=== PATIENT | female | born 1975 | race Caucasian/White ===

== ENCOUNTER 2022-03-01 15:38 | Emergency (ER) | payer MEDICAID, SELFPAY ==
--- NOTE | 2022-03-01 15:38 | ECG_ITS ---
APPROVED REPORT Exam: Resting ECG HR:99 bpm ECG Measurements Heart Rate 99 AXES WA 152 P 67 QRSd 88 QRS 40 QT 337 T 72 QTc 393 Conclusion SINUS RHYTHM MINIMAL ST DEPRESSION [0.025+ mV ST DEPRESSION] BORDERLINE ECG UNCONFIRMED REPORT Electronically signed by : Moshe Moreira MD 03/01/2022 19:57:03
[2022-03-01 15:43] VITALS: BP 135/110; PULSE 82; RESP 20; TEMP 36.8; O2SAT 100; BMI 20.7
[2022-03-01 16:00] VITALS: BP 102/77
--- NOTE | 2022-03-01 16:07 | PC.NURSE ---
DR. BENNETT AT BEDSIDE
[2022-03-01 16:18] LABS: Basophils # 0.1 K/mm3 (0-0.2); Eosinophils # 0.4 K/mm3 (0.0-0.4); Eosinophils % 4.2 % (0.1-12.0); Hematocrit 42.4 % (37.0-47.0); Hemoglobin 13.6 g/dL (12.2-16.2); Lymphocytes # 1.9 K/mm3 (0.7-4.5); Lymphocytes % 22.6 % (10-50); Mean Corpuscular HGB Conc 32.1 g/dL (31.8-35.4); Mean Corpuscular Hemoglobin 28.6 pg (27.0-31.2); Mean Corpuscular Volume 89.1 fl (81-99); Mean Platelet Volume 7.3 fl (7.4-10.4); Monocytes # 0.5 K/mm3 (0.1-1.0); Neutrophils # 5.7 K/mm3 (1.8-7.8); Neutrophils % 66.2 % (37.0-80.0); Platelet Count 342 K/mm3 (142-424); Red Blood Count 4.76 M/mm3 (4.20-5.40); Red Cell Distribution Width 13.1 % (11.5-17.5); White Blood Count 8.5 K/mm3 (4.8-10.8)
[2022-03-01 16:20] LABS: Chloride 104 mmol/L (98-107)
[2022-03-01 16:21] LABS: Potassium 3.5 mmoL/L (3.5-5.1); Sodium 136 mmol/L (136-145)
[2022-03-01 16:23] LABS: Alanine Aminotransferase 15 U/L (12-78); Aspartate Amino Transferase 23 U/L (14-36); Blood Urea Nitrogen 13 mg/dl (7-17); Estimated Glomerular Filt Rate 90 ml/min (>60); GFR (African American) 109 ML/MIN (>60); Lipase 72 U/L (23-300)
[2022-03-01 16:24] LABS: Albumin Level 4.2 g/dl (3.5-5.0); Albumin/Globulin Ratio 1.5 (1.1-1.8); Alkaline Phosphatase 91 U/L (38-126); Anion Gap 6.5 mEq/L (5-15); Calcium 9.2 mg/dl (8.4-10.2); Carbon Dioxide 29 mmol/L (22.0-30.0); Globulin 2.8 g/dL (1.3-3.2); Glucose 94 mg/dl (74-100)
[2022-03-01 16:26] LABS: Coronavirus 19, PCR Not Detected (NotDetected); Influenza A, PCR Not Detected (NotDetected); Influenza B, PCR Not Detected (NotDetected)
[2022-03-01 16:26] LABS: Microscopic, Urine URINE MICROSCOPIC (MICROSCOPIC)
[2022-03-01 16:30] VITALS: BP 107/74; PULSE 79; O2SAT 98
[2022-03-01 16:38] LABS: Bilirubin,Total 0.1 mg/dl (0.2-1.3)
[2022-03-01 16:44] LABS: Appearance,Urine CLEAR (Clear); Bilirubin,Urine Negative (Negative); Blood, Urine Negative (Negative); Color,Urine STRAW (Yellow); Glucose,Urine (UA) Negative (Negative); Ketones,Urine Negative (Negative); Leukocyte Esterase,Urine Negative (Negative); Nitrate,Urine Negative (Negative); PH,Urine 7.5 (5.0-8.5); Protein,Urine Negative (Negative); Specific Gravity, Urine 1.015 (1.005-1.030); Urobilinogen,Urine 0.2 EU/dl (0.2)
[2022-03-01 17:00] VITALS: BP 103/76; PULSE 94; O2SAT 97
--- NOTE | 2022-03-01 17:12 | PC.NURSE ---
ER at to update patient on POC
--- NOTE | 2022-03-01 17:32 | HMH.EDGENADL ---
Discharge Plan Disposition Patient Disposition: Home, Self-Care Condition: Good Prescriptions Prescriptions: New ondansetron 4 mg tablet,disintegrating 4 mg PO DAILY Qty: 30 0RF Referrals Follow up/Referrals: Silvano Tomas [Primary Care Provider] - See instructions Activity Restrictions/Add. Instructions Additional Instructions/Restrictions: Please follow-up with your primary care physician within the next 1 to 2 days. Please drink plenty of water and take Tylenol for pain control. Please be careful with NSAIDs given concern for possible gastritis/peptic ulcer disease. Please return to the emergency department if symptoms worsen. You have also been prescribed Zofran please take as prescribed. Clinical Impressions Clinical Impression: Atypical chest pain Print Language Print Language: Greenlandic Discharge ED Provider: Leti Null General Adult HPI General Chief complaint: Chest Pain Stated complaint: CP Time Seen by Provider: 03/01/22 15:40 Mode of Arrival: Ambulatory Source of Information: Patient Limitations: No Limitations Description of Symptoms (Recalled from ER Triage Doc. by RN): PT REPORTS CHEST PAIN X 2 DAYS THAT RADIATES TO BACK, NAUSEA X 3 DAYS. PAIN IN CENTER OF CHEST IS SHARP, PAIN WITH INSPIRATION, PAIN UNDER LEFT BREAST. REPORTS HEADACHE AND TINGLING TO LEFT PINKY AND RING FINGER History of Present Illness HPI narrative: Mrs. Ventura is a 46-year-old female presenting to the emergency department for chest pain for 2 days which radiates into her back. She also reports nausea for 3 days. Patient describes the chest pain as sharp and located underneath her left breast. Also reports headache and tingling of her fingers. Patient does report a history of anxiety but reports this feels different than her usual anxiety attacks. Denies any fevers or other infectious-like symptoms. Normal bowel movements. No abdominal pain. No lower extremity swelling or pain. No history of blood clots. complaint: Chest pain Related Data Previous Rx's Medication Instructions Recorded ondansetron 4 mg disintegrating 4 mg PO DAILY #30 tabs 03/01/22 tablet Allergies Allergy/AdvReac Type Severity Reaction Status Date / Time No Known Allergies Allergy Verified 03/01/22 17:17 [facility] Disclaimer: The information contained in this section may have been updated after the patient was seen, as this information can be updated by other users. Social History Smoking Status: Never smoker alcohol intake: never current occupational status: employed Travel in the last 8 weeks: None ROS Obtained: Yes All systems reviewed & no additional complaints except as documented Physical Exam General General appearance: alert and in no apparent distress Head Head exam: atraumatic and normocephalic Eye Eye exam: Present normal appearance and EOMI ENT ENT exam: Present normal exam and normal oropharynx Neck Neck exam: Present normal inspection and full ROM Chest Chest inspection: Present normal inspection and symmetric chest wall rise Respiratory Respiratory exam: Present normal lung sounds bilaterally Cardiovascular Cardiovascular exam: Present regular rate and normal heart sounds Abdominal Exam Abdominal exam: Present soft and normal bowel sounds Extremities Exam Extremities exam: Present normal inspection and full ROM Back Exam Back exam: Present normal inspection and full ROM Neurological Exam Neurological exam: Present alert and oriented X3 Skin Skin exam: Present warm and normal color Medical Decision Making Medical Records Medical records reviewed: Yes I reviewed the patient's medical records. Kt Inquiry Pt receiving controlled substance: No Vital Signs: 03/01/22 15:43 03/01/22 16:00 03/01/22 16:30 Temperature 98.3 F Temperature Source Oral Pulse Rate 79 Pulse Rate [Apical] 82 Respiratory Rate 20 Blood Pressure 1
[2022-03-01 17:36] LABS: Squamous Epithelial Cell,Urine Occasional #/hpf (0-5)
[2022-03-01 17:40] VITALS: BP 103/76; PULSE 88; RESP 17; TEMP 37; O2SAT 100
== END 2022-03-01 17:40 | disposition home or self-care (01) ==
PROVIDERS: Emergency Provider Student in an Organized Health Care Education/Training Program; PCP Pediatrics
DX: R07.89 Other chest pain (principal)
CPT/HCPCS: 80053; 81001; 83690; 85025; 93005; 96365; 96375; 99284; C9803; J2405; U0003; U0005

== ENCOUNTER 2022-10-06 21:56 | Emergency (ER) | payer MEDICAID, SELFPAY ==
--- NOTE | 2022-10-06 21:56 | ECG_ITS ---
APPROVED REPORT Exam: Resting ECG HR:79 bpm ECG Measurements Heart Rate 79 AXES MA 157 P 79 QRSd 84 QRS 85 QT 338 T 72 QTc 373 Conclusion SINUS RHYTHM WITH SINUS ARRHYTHMIA NORMAL ECG UNCONFIRMED REPORT Electronically signed by : Moshe oMreira MD 10/07/2022 21:35:23
[2022-10-06 21:57] VITALS: BP 121/81; PULSE 79; RESP 20; TEMP 36.8; O2SAT 100; BMI 22.6
--- NOTE | 2022-10-06 22:18 | XR_ITS ---
PROCEDURE INFORMATION: Exam: XR Chest Exam date and time: 10/06/2022 10:22 PM Age: 47 years old Clinical indication: Other: Palpitations; Additional info: Palpitation TECHNIQUE: Imaging protocol: Radiologic exam of the chest. Views: 1 view. COMPARISON: No relevant prior studies available. FINDINGS: Lungs: Unremarkable. No consolidation. Pleural spaces: Unremarkable. No pleural effusion. No pneumothorax. Heart/Mediastinum: Unremarkable. No cardiomegaly. Bones/joints: Unremarkable. IMPRESSION: No acute findings.
[2022-10-06 22:29] LABS: Basophils % 0.3 % (0.1-2.0); Eosinophils # 0.3 K/mm3 (0.0-0.4); Eosinophils % 2.6 % (0.1-12.0); Hematocrit 42.3 % (37.0-47.0); Hemoglobin 13.5 g/dL (12.2-16.2); Lymphocytes % 16.1 % (10-50); Mean Corpuscular Hemoglobin 28.7 pg (27.0-31.2); Mean Corpuscular Volume 89.7 fl (81-99); Mean Platelet Volume 7.4 fl (7.4-10.4); Monocytes # 0.7 K/mm3 (0.1-1.0); Neutrophils # 9.1 K/mm3 (1.8-7.8); Neutrophils % 74.9 % (37.0-80.0); Platelet Count 284 K/mm3 (142-424); Red Blood Count 4.72 M/mm3 (4.20-5.40); Red Cell Distribution Width 13.2 % (11.5-17.5); White Blood Count 12.2 K/mm3 (4.8-10.8)
[2022-10-06 22:30] LABS: Chloride 105 mmol/L (98-107); Potassium 3.6 mmoL/L (3.5-5.1); Sodium 140 mmol/L (136-145)
[2022-10-07 00:36] VITALS: BP 115/74; PULSE 71; RESP 16; TEMP 36.8; O2SAT 100
[2022-10-07 01:29] LABS: Alanine Aminotransferase 21 U/L (12-78); Anion Gap 14.6 mEq/L (5-15); Aspartate Amino Transferase 35 U/L (14-36); Bilirubin,Total 0.3 mg/dl (0.2-1.3); Blood Urea Nitrogen 12 mg/dl (7-17); Carbon Dioxide 24 mmol/L (22.0-30.0); Creatinine Clearance Estimated 100 mL/min (50-200); Estimated Glomerular Filt Rate 107 ml/min (>60); GFR (African American) 130 ML/MIN (>60); Glucose 96 mg/dl (74-100); Total Protein,Serum 7.4 g/dl (6.3-8.2); Troponin I < 0.01 ng/ml (0.00-0.034)
[2022-10-07 01:30] LABS: Albumin Level 4.3 g/dl (3.5-5.0); Albumin/Globulin Ratio 1.4 (1.1-1.8); Alkaline Phosphatase 90 U/L (38-126); Globulin 3.1 g/dL (1.3-3.2)
== END 2022-10-06 23:32 | disposition home or self-care (01) ==
PROVIDERS: Emergency Provider Emergency Medicine; PCP Pediatrics
DX: Z53.21 Procedure and treatment not carried out due to patient leaving prior to being seen by health care provider (principal)
CPT/HCPCS: 71045; 80053; 84484; 85025; 93005; 99211

== ENCOUNTER 2022-12-22 17:14 | Emergency (ER) | payer MEDICAID, SELFPAY ==
--- NOTE | 2022-12-22 17:24 | PC.NURSE ---
Dr. Sandoval at BS for pt eval
[2022-12-22 17:25] VITALS: BP 127/84; PULSE 84; RESP 20; TEMP 36.8; O2SAT 100; BMI 20.9
--- NOTE | 2022-12-22 17:30 | CT_ITS ---
PROCEDURE INFORMATION: Exam: CT Abdomen And Pelvis With Contrast Exam date and time: 12/22/2022 6:40 PM Age: 47 years old Clinical indication: Abdominal pain; Additional info: HX liver tumor/severe anxiety/tachypnea TECHNIQUE: Imaging protocol: Computed tomography of the abdomen and pelvis with contrast. Radiation optimization: All CT scans at this facility use at least one of these dose optimization techniques: automated exposure control; mA and/or kV adjustment per patient size (includes targeted exams where dose is matched to clinical indication); or iterative reconstruction. Contrast material: ISOVUE; Contrast volume: 70 ml; Contrast route: IV; REPORTING DATA: Count of CT and Cardiac NM exams in prior 12 months: This patient has received 0 known CTs and 0 known cardiac nuclear medicine studies in the 12 months prior to the current study. COMPARISON: None FINDINGS: Liver: 3.4 x 3 cm well-defined hypodense mass anteriorly in the right lobe of the liver. Findings compatible with a hepatic cyst. Gallbladder and bile ducts: Gallbladder partially collapsed. Pancreas: Pancreas unremarkable Spleen: The spleen is unremarkable. Adrenal glands: Adrenal glands unremarkable. Kidneys and ureters: No hydronephrosis. Stomach and bowel: Moderate stool burden the. Colonic diverticulosis. No evidence of diverticulitis. Appendix: Appendix unremarkable Intraperitoneal space: Unremarkable. No free air. No significant fluid collection. Vasculature: Unremarkable. No abdominal aortic aneurysm. Lymph nodes: Unremarkable. No enlarged lymph nodes. Urinary bladder: Unremarkable as visualized. Reproductive: 2 cm left adnexal cyst. Bones/joints: Unremarkable. No acute fracture. Approximate 3 mm central disc bulge at L4-L5. Findings incompletely visualized. Soft tissues: Unremarkable. IMPRESSION: 1. 3.4 x 3 cm well-defined hypodense mass anteriorly in the right lobe of the liver. Findings compatible with a hepatic cyst. 2. No evidence of acute abnormality.
--- NOTE | 2022-12-22 17:30 | CT_ITS ---
PROCEDURE INFORMATION: Exam: CTA Chest Without And With Contrast Exam date and time: 12/22/2022 6:40 PM Age: 47 years old Clinical indication: Shortness of breath; Additional info: Liver tumor/soa/severe anxiety TECHNIQUE: Imaging protocol: Computed tomographic angiography of the chest without and with contrast. Exam focused on the arteries. 3D rendering (Not supervised by radiologist): MIP and/or 3D reconstructed images were created by the technologist. Radiation optimization: All CT scans at this facility use at least one of these dose optimization techniques: automated exposure control; mA and/or kV adjustment per patient size (includes targeted exams where dose is matched to clinical indication); or iterative reconstruction. Contrast material: ISOVUE 370; Contrast volume: 70 ml; Contrast route: INTRAVENOUS (IV); REPORTING DATA: Count of CT and Cardiac NM exams in prior 12 months: This patient has received 0 known CTs and 0 known cardiac nuclear medicine studies in the 12 months prior to the current study. COMPARISON: CR XR CHEST PORTABLE 10/06/2022 10:22 PM FINDINGS: Pulmonary arteries: There is suboptimal opacification of pulmonary arteries due to contrast bolus timing. Aorta: Unremarkable. No aortic aneurysm. No aortic dissection. Lungs: Calcified granuloma left lung base. Pleural spaces: Unremarkable. No pneumothorax. No pleural effusion. Heart: Unremarkable. No cardiomegaly. No pericardial effusion. Coronary arteries: No evidence of coronary artery calcification Lymph nodes: Unremarkable. No enlarged lymph nodes. Bones/joints: Unremarkable. No acute fracture. Soft tissues: Solitary dense calcification retro areolar region right breast in Other findings: Please see CT abdomen report for discussion of the abdomen. IMPRESSION: No large or central pulmonary embolus. Evaluation of the peripheral pulmonary arteries is limited.
--- NOTE | 2022-12-22 17:31 | HMH.EDGENADL ---
Discharge Plan Disposition Patient Disposition: Home, Self-Care Chief Complaint: Anxiety Prescriptions Prescriptions: No Action dextroamphetamine-amphetamine 10 mg tablet 20 mg PO DAILY Patient Comments: TAKE 1 TABLET BY MOUTH DAILY. Trintellix 10 mg tablet 20 mg PO DAILY Patient Comments: TAKE 1 TABLET BY MOUTH DAILY ondansetron 4 mg tablet,disintegrating 4 mg PO DAILY Referrals Follow up/Referrals: Silvano Tomas [Primary Care Provider] - See instructions Activity Restrictions/Add. Instructions Additional Instructions/Restrictions: At this time it was felt you are safe to be discharged home. If new or worsening symptoms please do not hesitate to return the emergency department. If symptoms persist please follow-up with your family doctor as you are able. Clinical Impressions Clinical Impression: Panic attack Discharge ED Provider: Cecilio Sandoval General Adult HPI General Chief complaint: Anxiety Stated complaint: panic attacks Time Seen by Provider: 12/22/22 17:25 History of Present Illness HPI narrative: Patient is a 47-year-old female with past medical history of ADHD, bipolar disorder, severe anxiety who presents emergency department for evaluation of what she suspects is an anxiety attack. Onset was acute, 2:30 PM. Feelings of impending doom, muscle cramps, severe shortness of breath and anxiety. 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 Patient no longer has her menstrual period. No other acute complaints at this time. Related Data Home Medications Medication Instructions Recorded Confirmed dextroamphetamine-amphetamine 10 20 mg PO DAILY ADHD 10/06/22 10/06/22 mg tablet ondansetron 4 mg disintegrating 4 mg PO DAILY Nausea 10/06/22 10/06/22 tablet vortioxetine 10 mg tablet 20 mg PO DAILY anxiety 10/06/22 10/06/22 (Trintellix) Allergies Allergy/AdvReac Type Severity Reaction Status Date / Time No Known Allergies Allergy Verified 03/01/22 17:17 [facility] Disclaimer: The information contained in this section may have been updated after the patient was seen, as this information can be updated by other users. Social History (Updated 03/02/22 @ 13:58 by Leti Null MD) Smoking Status: Never smoker alcohol intake: never current occupational status: employed Travel in the last 8 weeks: None ROS Obtained: Yes Systems reviewed as appropriate & no additional complaints except as documented Physical Exam General General appearance: alert and in distress Head Head exam: atraumatic and normocephalic Eye Eye exam: Present PERRL and EOMI ENT ENT exam: Present mucous membranes moist Neck Neck exam: Present normal inspection Chest Chest inspection: Present normal inspection and symmetric chest wall rise Respiratory Respiratory exam: Present normal lung sounds bilaterally, respiratory distress and other (Tachypnea) Cardiovascular Cardiovascular exam: Present regular rate and normal rhythm Abdominal Exam Abdominal exam: Present soft; Absent tenderness Extremities Exam Extremities exam: Present normal inspection Neurological Exam Neurological exam: Present alert Psychiatric Psychiatric exam: Present anxious Skin Skin exam: Present warm and dry Medical Decision Making Kt Inquiry Pt receiving controlled substance: No Vital Signs: 12/22/22 18:00 12/22/22 17:25 12/22/22 18:50 Temperature 98.3 F Temperature Source Oral Pulse Rate 71 66 Pulse Rate [Left Radial] 84 Respiratory Rate 20 Blood Pressure 112/74 123/72 Blood Pressure [Right Arm] 127/84 Blood Pressure Mean 89 Blood Pressure Mean [Right Arm] 98 02 Sat by Pulse Oximetry 99 100 99 Oxygen Delivery Method Room Air Lab Data Lab Results 12/22/22 18:22: WBC 7.6, RBC 4.53, Hgb 13.1, Hct 40.9, MCV 90.5, MCH
[2022-12-22 18:00] VITALS: BP 112/74; PULSE 71; O2SAT 99
--- NOTE | 2022-12-22 18:03 | ECG_ITS ---
APPROVED REPORT Exam: Resting ECG HR:65 bpm ECG Measurements Heart Rate 65 AXES AZ 142 P 68 QRSd 87 QRS 55 QT 369 T 69 QTc 380 Conclusion SINUS RHYTHM LOW QRS VOLTAGE IN PRECORDIAL LEADS [QRS DEFLECTION < 1.0 mV IN CHEST LEADS] BORDERLINE ECG UNCONFIRMED REPORT Electronically signed by : Moshe Moreira MD 12/23/2022 17:18:55
[2022-12-22 18:31] VITALS: BMI 20.9
[2022-12-22 18:37] LABS: Chloride 106 mmol/L (98-107); Sodium 142 mmol/L (136-145)
[2022-12-22 18:38] LABS: Potassium 3.8 mmoL/L (3.5-5.1)
[2022-12-22 18:40] LABS: Alanine Aminotransferase 18 U/L (12-78); Albumin/Globulin Ratio 1.3 (1.1-1.8); Alkaline Phosphatase 86 U/L (38-126); Anion Gap 10.8 mEq/L (5-15); Aspartate Amino Transferase 24 U/L (14-36); Basophils % 0.6 % (0.1-2.0); Bilirubin,Total 0.2 mg/dl (0.2-1.3); Blood Urea Nitrogen 11 mg/dl (7-17); Carbon Dioxide 29 mmol/L (22.0-30.0); Creatinine Clearance Estimated 73 mL/min (50-200); Eosinophils # 0.3 K/mm3 (0.0-0.4); Eosinophils % 3.3 % (0.1-12.0); Estimated Glomerular Filt Rate 77 ml/min (>60); GFR (African American) 93 ML/MIN (>60); Hematocrit 40.9 % (37.0-47.0); Hemoglobin 13.1 g/dL (12.2-16.2); Lymphocytes # 1.9 K/mm3 (0.7-4.5); Lymphocytes % 24.7 % (10-50); Mean Corpuscular HGB Conc 31.9 g/dL (31.8-35.4); Mean Corpuscular Hemoglobin 28.9 pg (27.0-31.2); Mean Corpuscular Volume 90.5 fl (81-99); Mean Platelet Volume 7.7 fl (7.4-10.4); Monocytes # 0.5 K/mm3 (0.1-1.0); Monocytes % 6.1 % (1.7-9.3); Neutrophils % 65.3 % (37.0-80.0); Platelet Count 325 K/mm3 (142-424); Red Blood Count 4.53 M/mm3 (4.20-5.40); Red Cell Distribution Width 13.1 % (11.5-17.5); White Blood Count 7.6 K/mm3 (4.8-10.8)
[2022-12-22 18:41] LABS: Calcium 8.8 mg/dl (8.4-10.2); Glucose 110 mg/dl (74-100)
[2022-12-22 18:50] VITALS: BP 123/72; PULSE 66; O2SAT 99
[2022-12-22 18:54] LABS: Troponin I < 0.01 ng/ml (0.00-0.034)
--- NOTE | 2022-12-22 19:20 | PC.NURSE ---
hand off report given to rn shift mgr staff
[2022-12-22 20:35] VITALS: BP 121/75; PULSE 64; RESP 16; TEMP 36.8; O2SAT 99
== END 2022-12-22 20:36 | disposition home or self-care (01) ==
PROVIDERS: Emergency Provider Emergency Medicine; PCP Pediatrics
DX: F41.0 Panic disorder [episodic paroxysmal anxiety] (principal); R06.02 Shortness of breath; F31.9 Bipolar disorder, unspecified; F90.9 Attention-deficit hyperactivity disorder, unspecified type
CPT/HCPCS: 71275; 74177; 80053; 84484; 85025; 93005; 96374; 99285; Q9967

== ENCOUNTER 2024-07-22 17:50 | Emergency (ER) | payer MEDICAID, SELFPAY ==
[2024-07-22 17:58] VITALS: BP 143/89; PULSE 78; RESP 18; TEMP 36.9; O2SAT 100; BMI 25.1
--- NOTE | 2024-07-22 18:06 | ECG_ITS ---
APPROVED REPORT Exam: Resting ECG HR:70 bpm ECG Measurements Heart Rate 70 AXES AR 159 P 63 QRSd 94 QRS 63 QT 367 T 59 QTc 388 Conclusion SINUS RHYTHM WITH SINUS ARRHYTHMIA NORMAL ECG Electronically signed by : OTTO GALDAMEZ, 07/22/2024 23:11:47
--- NOTE | 2024-07-22 18:28 | HMH.EDGENADL ---
Discharge Plan Disposition Patient Disposition: Home, Self-Care Condition: Good Prescriptions Prescriptions: No Action dextroamphetamine-amphetamine 10 mg tablet 20 mg PO DAILY Patient Comments: TAKE 1 TABLET BY MOUTH DAILY. Trintellix 10 mg tablet 20 mg PO DAILY Patient Comments: TAKE 1 TABLET BY MOUTH DAILY ondansetron 4 mg tablet,disintegrating 4 mg PO DAILY Referrals Follow up/Referrals: Silvano Tomas [Primary Care Provider] - See instructions Activity Restrictions/Add. Instructions Additional Instructions/Restrictions: As we discussed, it appears your headache was likely due to, in part, the recent initiation of your Wellbutrin. Given that you are feeling better, you are stable for discharge at this time. Please return with any new or worsening symptoms. Clinical Impressions Clinical Impression: Headache Instructions Patient Instructions: DI for Migraine, DI for Headache Print Language Print Language: Uzbek Discharge ED Provider: Tani Arguelles Adult HPI General Chief complaint: Headache Stated complaint: ZUNIGA,tightness in chest Time Seen by Provider: 07/22/24 18:28 Mode of Arrival: Ambulatory Source of Information: Patient Description of Symptoms (Recalled from ER Triage Doc. by RN): Pt presents with c/o headache x 2 days that came on suddenly. Pt states she has tried taking tylenol but has not had relief. Pt has nausea and is senstive to light. Pt is also concerned about the tightness in her chest. Pt states she has a hx of anxiety and has been having medication changes. Pt states she has a tightness in her chest that won't go away. Pt is tearful in triage. History of Present Illness HPI narrative: Patient presents with 2 days of headache with associated anxiety. Symptoms were not maximal at onset. She denies history of migraines however reports recent initiation of bupropion after discontinuation of Adderall for history of ADHD. She was also recently started on SSRI within the past month. She describes associated decreased p.o. intake. No diplopia however does describe some mild photophobia. She describes associated chest tightness that is intermittent and has been identical to symptoms attributable to anxiety in the past. She has not suffering from chest pain or tightness at this time. Denies any palpitations. No previous therapies. Please note that above description of symptoms, in this electronic medical record under categorization of recalled from ER triage doctor by RN are reflective of an initial nursing assessment, however, is not reflective of my full history and physical exam that was personally taken and clarified. Consequentially, this preceding description of symptoms, which may include the patient's categorized chief complaint in the EMR, do not reflect my personal clinical impression, and the ultimate description of history of present illness and patient stated complaints should be deferred to this section of the note. Unless stated otherwise or congruent with this section of the note, additional signs, symptoms, or incongruence should be interpreted as inaccurate with my clinical impression. Related Data Home Medications ?Medication ?Instructions ?Recorded ?Confirmed dextroamphetamine-amphetamine 10 20 mg PO DAILY ADHD 10/06/22 10/06/22 mg tablet ondansetron 4 mg disintegrating 4 mg PO DAILY Nausea 10/06/22 10/06/22 tablet vortioxetine 10 mg tablet 20 mg PO DAILY anxiety 10/06/22 10/06/22 (Trintellix) Allergies Allergy/AdvReac Type Severity Reaction Status Date / Time No Known Allergies Allergy Verified 03/01/22 17:17 [facility] Disclaimer: The information contained in this section may have been updated after the patient was seen, as this information can be updated by other users. Social History (Updated 03/02/22 @ 13:58 by Leti Null MD) Smoking Status: Never smoker alcohol intake: never current occupational status: employed Travel in the last 8 weeks?: None Have you lived/traveled outside [place] in past 30 days?: No Contact w/someone who lives/traveled outside [place] past 30 days?: No Exposure to someone with infectious disease in past 14 days?: No Do you have a fever (greater than 100.4 F or 38 C)?: No Have you tested positive for COVID-19?: No Exposed to someone with COVID-19 in past 14 days?: No Do you have a sore throat?: No Do you have a cough?: No Do you have any weakness?: No Do you have any diarrhea?: No Are you experiencing any unusual bleeding?: No Do you have any muscle aches/pain?: No Do you have any abdominal pain?: No Are you experiencing loss of taste or smell?: No ROS Obtained: Yes other As per HPI Physical Exam General General appearance: alert and in no apparent distress Head Head exam: atraumatic and normocephalic Eye Eye exam: Present normal appearance Neck Neck exam: Present normal inspection Chest Chest inspection: Present normal inspection and symmetric chest wall rise Respiratory Respiratory exam: Present normal lung sounds bilaterally; Absent respiratory distress Cardiovascular Cardiovascular exam: Present regular rate and normal rhythm Abdominal Exam Abdominal exam: Present soft Neurological Exam Neurological exam: Present alert and oriented X3 Psychiatric Psychiatric exam: Present normal affect and normal mood Skin Skin exam: Present warm and dry Medical Decision Making Medical Records Medical records reviewed: Yes I reviewed the patient's medical records. Screening: Per USPSTF and CDC recommendations, given the prevalence of disease in our region, it is our hospital?s policy to screen for HIV and viral Hepatitis for all patients aged 18 and over and those with ongoing risk factors. Kt Inquiry Pt receiving controlled substance: No Vital Signs: 07/22/24 17:58 07/22/24 18:30 07/22/24 19:37 Temperature 98.4 F 97.9 F Temperature Source Oral Oral Pulse Rate 67 90 Pulse Rate [Right] 78 Respiratory Rate 18 18 20 Blood Pressure 120/68 112/69 Blood Pressure [Right Arm] 143/89 H Blood Pressure Mean [Right Arm] 107 Blood Pressure Source [Right Arm] Automatic Cuff Blood Pressure Position [Right Arm] Sitting 02 Sat by Pulse Oximetry 100 94 L Oxygen Delivery Method Room Air Room Air Room Air Orders (Tests/Meds): ED MEDICATIONS Discontinued Medications Generic Name Dose Route Start Last Admin Trade Name Freq PRN Reason Stop Dose Admin Diphenhydramine HCl 25 mg 07/22/24 18:38 07/22/24 18:48 Diphenhydramine 50mg/Ml Vial IV 07/22/24 18:39 25 mg ONCE ONE Administration Sodium Chloride 1,000 mls @ 999 mls/hr 07/22/24 18:38 07/22/24 18:49 Sod Chlor 0.9% 1000ml Bag IV 07/22/24 19:38 999 mls/hr .Q1H1M ONE Administration Magnesium Sulfate 2 gm in 50 mls @ 50 mls/hr 07/22/24 18:38 07/22/24 18:48 Magnesium Sulfate 2gm/50ml Premix IV 07/22/24 19:37 50 mls/hr ONCE ONE Administration Ketorolac Tromethamine 15 mg 07/22/24 18:38 07/22/24 18:48 Ketorolac 30mg/Ml Vial IV 07/22/24 18:39 15 mg ONCE ONE Administration Prochlorperazine Edisylate 10 mg 07/22/24 18:38 07/22/24 18:49 Prochlorperazine 10mg/2ml Vial IV 07/22/24 18:39 10 mg ONCE ONE Administration Medical Decision Narrative: Patient with history and exam per above presenting for evaluation of headache in the setting of recent medication adjustment Diagnoses considered include medication side effect, migraine, no clinical evidence to warrant further testing for intracranial hemorrhage, venous sinus thrombus, or other acute surgical pathology, nor stroke ED workup and treatment included: ED MEDICATIONS Discontinued Medications Generic Name Dose Route Start Last Admin Trade Name Freq PRN Reason Stop Dose Admin Diphenhydramine HCl 25 mg 07/22/24 18:38 07/22/24 18:48 Diphenhydramine 50mg/Ml Vial IV 07/22/24 18:39 25 mg ONCE ONE Administration Sodium Chloride 1,000 mls @ 999 mls/hr 07/22/24 18:38 07/22/24 18:49 Sod Chlor 0.9% 1000ml Bag IV 07/22/24 19:38 999 mls/hr .Q1H1M ONE Administration Magnesium Sulfate 2 gm in 50 mls @ 50 mls/hr 07/22/24 18:38 07/22/24 18:48 Magnesium Sulfate 2gm/50ml Premix IV 07/22/24 19:37 50 mls/hr ONCE ONE Administration Ketorolac Tromethamine 15 mg 07/22/24 18:38 07/22/24 18:48 Ketorolac 30mg/Ml Vial IV 07/22/24 18:39 15 mg ONCE ONE Administration Prochlorperazine Edisylate 10 mg 07/22/24 18:38 07/22/24 18:49 Prochlorperazine 10mg/2ml Vial IV 07/22/24 18:39 10 mg ONCE ONE Administration Patient had improvement of symptoms upon repeat evaluation. I discussed my clinical impression with patient and answered all questions. At this time, the evidence for any other entities in the differential is insufficient to warrant any further testing or ED observation. This was explained to the patient. The patient was advised that persistent or worsening symptoms require further evaluation. Critical Care Critical Care Time Critical Care Time: No
[2024-07-22 18:30] VITALS: BP 120/68; PULSE 67; RESP 18; O2SAT 94
[2024-07-22] MEDS: MAGNESIUM SULFATE IN WATER 2 GM/50 ML PIGGYBACK IV (18:48)
[2024-07-22] MEDS: KETOROLAC 30MG/ML VIAL 15 MG IV (18:48)
[2024-07-22] MEDS: diphenhydrAMINE 50MG/ML VIAL 25 MG IV (18:48)
[2024-07-22] MEDS: PROCHLORPERAZINE 10MG/2ML VIAL 10 MG IV (18:49)
[2024-07-22] MEDS: 0.9 % SODIUM CHLORIDE 1000ML 1,000 ML 999 ML IV (18:49)
[2024-07-22 19:37] VITALS: BP 112/69; PULSE 90; RESP 20; TEMP 36.6; O2SAT 96
== END 2024-07-22 19:42 | disposition home or self-care (01) ==
PROVIDERS: Emergency Provider Emergency Medicine; PCP Pediatrics
DX: R07.89 Other chest pain (principal); R51.9 Headache, unspecified
CPT/HCPCS: 93005; 96365; 96375; 99284; J0780; J1200; J1885; J3475; J7030

== ENCOUNTER → 2024-11-06 12:58 | Outpatient (REF) | payer SELFPAY ==
--- OUTSIDE RECORDS SUMMARY | 2024-09-19 13:40 | XMS_ITS | Encounter Summary ---
Author Organization [place] [address] Care Team Providers Care Rn Camp Name Role Phone Silvano Tomas MD Primary Care Provider [phone] Reason for Visit * Reason Comments ADHD Pt is wanting to go back in adderall since getting anxiety under control Encounter Details Date Type Department Care Team (Late st Contact Info) Description 09/19/2024 1:40 PM EDT Office Visit SEP Travis [facility] [place] [address] [place] [address] Hema Youssef MD [place] [facility] [place] [address] Bipolar affective disorder, manic, mild (HCC) (Primary Dx); Generalized anxiety disorder; Severe episode of recurrent major depressive disorder, without psychotic features (HCC); Attention disturbance Social History Tobacco Use Types Packs/Day Years Used Date Smoking Tobacco: Never Passive Smoke Exposure: Never Smokeless Tobacco: Never Alcohol Use Standard Drinks/Week Comments No 0 (1 standard drink = 0.6 oz pur e alcohol) Overall Financial Resource Strain (CARDIA) Answe r Date Recorded How hard is it for you to pa y for the very basics like food, housing, medical care, and heating? Not hard at all 10/14/2022 PHQ-2 Answer Date Recorded PHQ-2 Total Score 0 06/13/2024 [facility] of Occupat ional Health - Occupational Stress Questionnaire Answer Date Recorded Do you feel stress - tense, restless, nervous, or anxious, or unable to sleep at night because your mind is troubled all the time - these days? Very much 10/14/2022 Exercise Vital Sign Answer Date Recorde d On average, how many days pe r week do you engage in moderate to strenuous exercise (like a brisk walk)? 0 days 10/14/2022 On average, how many minutes do you engage in exercise at this level? 0 min 10/14/2022 Hunger Vital Sign Answer Date Recorded Within the past 12 months, y ou worried that your food would run out before you got the money to buy more. Never true 10/15/19 23 Within the past 12 months, t he food you bought just didn't last and you didn't have money to get more. Never true 10/14/2022 PRAPARE - Transportation Answer Date Re corded In the past 12 months, has l ack of transportation kept you from medical appointments or from getting medications? No 09/26 In the past 12 months, has l ack of transportation kept you from meetings, work, or from getting things needed for daily living? No 10/14/2022 Sexually Active Control Partners Comments Yes Surgical Male hysterectomy Comments No Sex and Gender Information Value Date Recorded Sex Assigned at Not on file Legal Sex Female 11:44 PM EDT Gender Identity Not on file Sexual Orientation Not on file Occupation Industry Job Start Date Job End Date stay at [employer] Not on file Not on file Not on file documented as of this encounter Last Filed Vital Signs Vital Sign Reading Time Taken Comments Blood Pressure 114/74 09/19/2024 1:15 PM EDT Pulse 61 09/19/2024 1:15 PM EDT Temperature 36.7 C (98.1 F) 09/19/2024 1:15 PM EDT Respiratory Rate 20 09/19/2024 1:15 PM EDT Oxygen Saturation 98% 09/19/2024 1:15 PM EDT Inhaled Oxygen Concentration - - Weight 60.3 kg (133 lb) 09/19/2024 1:15 PM EDT Height - - Body Mass Index 24.33 06/13/2024 2:09 PM EDT documented in this encounter Functional Status * Is the person deaf or does he/she have serious difficulty hearing? Answer Date of Assessment Author No 06/13/2024 2:08 PM EDT Winnie Rivas CCMA * Is the person blind or does he/she have serious difficulty seeing even when wearing glasses? Answer Date of Assessment Author No 06/13/2024 2:08 PM EDT Winnie Rivas CCMA * Does this person have serious difficulty walking or climbing stairs? Answer Date of Assessment Author No 06/13/2024 2:08 PM EDWinnie Valles CCMA * Does this person have difficulty dressing or bathing? Answer Date of Assessment Author No 06/13/2024 2:08 PM EDT Winnie Rivas CCMA * Because of a physical, mental or emotional condition, does this person have difficulty doing errands alone such as visiting a doctor's office or shopping? Answer Date of Assessment Author No 06/13/2024 2:08 PM EDT Winnie Rivas CCMA documented as of this encounter Mental Status * Because of a physical, mental or emotional condition, does this person have serious difficulty concentrating, remembering or making decisions? Answer Entry Date Author No 06/13/2024 2:08 PM EDWinnie Valles CCMA documented in this encounter Ordered Prescriptions Prescription Sig Dispense Quantity Refills Last Filled Start Date End Date dextroamphetamine- amphetamine (ADDERALL) 10 mg Oral Tablet Take 1 Tablet by mouth 2 times daily. 60 Tablet 09/19/2024 10/18/2024 documented in this encounter Progress Notes * Hema Youssef MD - 09/19/2024 1:40 PM EDT Diagnoses and all orders for this visit: Bipolar affective disorder, manic, mild (HCC) (Chronic) Overview: Tried Trintellix, Prozac, Lexapro, Paxil, Zoloft, Celexa, Pristiq, Abilify Tried Vraylar as well. Seroquel made her too sleepy. All were ineffective or had side effects. No longer on Prozac due to side effects. Increasing zyprexa to BID has helped. Sleeping better. Generalized anxiety disorder Overview: Denies HSI, AVH, anhedonia, despair Has been on multiple regiments. Now doing well on zyprexa. Rarely taking valium. Severe episode of recurrent major depressive disorder, without psychotic features (HCC) Overview: Denies HSI, AVH, anhedonia, despair Has been on multiple regiments. Now doing well on zyprexa. Attention disturbance Comments: trial back on Adderall. Other orders - dextroamphetamine-amphetamine (ADDERALL) 10 mg Oral Tablet; Take 1 Tablet by mouth 2 times daily.Dispense: 60 Tablet; Refill: 0 If current plan not effective or has manic / anxiety exacerbation will stop Adderall and increase zyprexa. Progress Note: Vitals: 09/19/24 1315 BP: 114/74 Pulse: 61 Resp: 20 Temp: 98.1 ??F (36.7 ??C) SpO2: 98% Weight: 133 lb (60.3 kg) Body mass index is 24.33 kg/m??. SUBJECTIVE: Chief Complaint Patient presents with ??? ADHD Pt is wanting to go back in adderall since getting anxiety under control HPI: Anxiety / depression / bipolar affective symptoms better controled off of Prozac and on increased dosing of zyprexa. Now rarely takes valium. Now states that she has a focus issue at work. Adderall helped in the past but was concerned that it may have been linked to anxiety exacerbation. Discussed risks and benefits. Discussed possibility of needing more zypexa. Review of Systems Constitutional: Negative for chills and fever. HENT: Negative for congestion and sinus pain. Respiratory: Negative for cough, chest tightness and shortness of breath. Cardiovascular: Negative for chest pain and palpitations. Gastrointestinal: Negative for abdominal pain, nausea and vomiting. Neurological: Negative for dizziness and headaches. OBJECTIVE: Physical Exam documented in this encounter Plan of Treatment Upcoming Encounters Date Type Department Care Team (Late st Contact Info) Description 11/09/2024 3:45 PM EDT Office Visit [facility] [address] [place] [address] Lor Moore CNM [address] [address] documented as of this encounter Goals Goal Patient Goal Type Associated Problems Recent Progress Patient-Stated? Author Eat better, exercise, reach an ideal body weight General No Mirela uGtierres RMA documented as of this encounter Visit Diagnoses Diagnosis Bipolar affective disorder, manic, mild (HCC)- Primary Bipolar I disorder, most recent episode (or current) manic, mild Generalized anxiety disorder Severe episode of recurrent major depressive disorder, without psychotic features (HCC) Attention disturbance Attention or concentration deficit documented in this encounter Discontinued Medications Medication Sig Discontinue Reason Start Date End Da te buPROPion (WELLBUTRIN XL) 150 mg Oral Tablet Sustained Release 24 hr Take 1 Tablet by mouth every morning. Cancelled by 07/19/2024 09/19/2024 FLUoxetine (PROZAC) 20 mg Oral Capsule Take 1 Capsule by mouth daily. DELETE-Therapy completed 07/19/2024 09/19/2024 ipratropium (ATROVENT) 21 mcg (0.03 %) Nasl [place], Non-AerosolIndications :Influenza B 2 Sprays by Nasal route 3 times daily. DELETE-Therapy completed 02/25/2023 09/19/2024 documented as of this encounter Care Teams Rn Camp Relationship Specialty Start Date End Date Silvano Tomas MD [address] [place], [place] [id number] PCP - General Internal Medicine 10/27/20 documented as of this encounter
--- OUTSIDE RECORDS SUMMARY | 2024-10-18 13:00 | XMS_ITS | Encounter Summary ---
Author Organization [place] [address] Care Team Providers Care Tool Grinding Machine Operator Name Role Phone Silvano Tomas MD Primary Care Provider Reason for Referral * Medication Prior Authorization - Closed Specialty Diagnoses / Procedures Referred By Yajaira vasquez Referred To Contact Hema Youssef MD [facility] [place] [address] Phone: tel: fax: Referral ID Status Reason Start Date Expiration Date Visits Re quested Visits Authorized [id number] Closed 1 1 * Consultation (Routine) - Authorization Not Needed Specialty Diagnoses / Procedures Referred By Yajaira vasquez Referred To Contact Gastroenterology Diagnoses Colon cancer screening Procedures DC OFFICE/OUTPATIENT NEW MODERATE MDM 45 MINUTES Hema Youssef MD [address] [place] [address] [place] [address] Phone: tel: fax: Madelin Linares MD [address] [place] [address] Phone: tel: fax: Referral ID Status Reason Start Date Expiration Date Visits Requested Visits Authorized [id number] Authorization Not Needed 10/18/2024 04/20/2026 99 99 Question Answer Is this referral for colon cancer screening? Yes Provider Options First Available Reason for Visit * Reason Comments Medication Management f/u on Adderall Encounter Details Date Type Department Care Team (Late st Contact Info) Description 10/18/2024 1:00 PM EDT Office Visit ELKE SANCHEZ [address] [place], [place] [address] Hema Youssef MD [address] [facility] [place] [address] Attention disturbance (Primary Dx); Colon cancer screening; Generalized anxiety disorder; Bipolar affective disorder, manic, mild (HCC) Social History Tobacco Use Types Packs/Day Years [...] Date Recorded PHQ-2 Total Score 0 06/13/2024 [facility] of Occupat ional Health - Occupational Stress [...] Start Date Job End Date stay at [employer] [place] Not on file Not on file Not on file documented as of this encounter Last Filed Vital Signs Vital Sign Reading Time Taken Comments Blood Pressure 116/75 10/18/2024 12:56 PM EDT Pulse 60 10/18/2024 12:56 PM EDT Temperature 36.1 C (97 F) 10/18/2024 12:56 PM EDT Respiratory Rate 18 10/18/2024 12:56 PM EDT Oxygen Saturation 98% 10/18/2024 12:56 PM EDT Inhaled Oxygen Concentration - - Weight 62.1 kg (137 lb) 10/18/2024 12:56 PM EDT Height 157.5 cm (5' 2 ) 10/18/2024 12:56 PM EDT Body Mass Index 25.06 10/18/2024 12:56 PM EDT documented in this encounter Functional [...] Rivas CCMA * Does this person have difficulty [...] Entry Date Author No 06/13/2024 2:08 PM EDT Winnie Rivas CCMA documented in this encounter Ordered Prescriptions Prescription Sig Dispense Quantity Refills Last Filled Start Date End Date dextroamphetamine- amphetamine (ADDERALL) 10 mg Oral Tablet Take 2 Tablets by mouth daily. 60 Tablet 10/18/2024 documented in this encounter Progress Notes * Hema Youssef MD - 10/18/2024 1:00 PM EDT Diagnoses and all orders for this visit: Attention disturbance Comments: Issues with short term memory. Change dosing to 20 mg daily. Follow up in one month. Overview: Issues with short term memory. Change dosing to 20 mg daily. Follow up in one month. Colon cancer screening - AMB REFERRAL TO GASTROENTEROLOGY Generalized anxiety disorder Overview: Denies HSI, AVH, anhedonia, despair Has been on multiple regiments. Now doing well on zyprexa. Rarely taking valium. Bipolar affective disorder, manic, mild (HCC) (Chronic) Overview: Tried Trintellix, Prozac, Lexapro, Paxil, Zoloft, Celexa, Pristiq, Abilify Tried Vraylar as well. Seroquel made her too sleepy. All were ineffective or had side effects. No longer on Prozac due to side effects. Increasing zyprexa to BID has helped. Sleeping better. Other orders - dextroamphetamine-amphetamine (ADDERALL) 10 mg Oral Tablet; Take 2 Tablets by mouth daily. Dispense: 60 Tablet; Refill: 0 Progress Note: Vitals: 10/18/24 1256 BP: 116/75 Pulse: 60 Resp: 18 Temp: 97 ??F (36.1 ??C) TempSrc: Temporal SpO2: 98% Weight: 137 lb (62.1 kg) Height: 5' 2 (1.575 m) Body mass index is 25.06 kg/m??. SUBJECTIVE: Chief Complaint Patient presents with ??? Medication Management f/u on Adderall HPI: Focus is improved but still having short term memory. Has racing thoughts. Having difficulty remembering things that she reads. Denies worsening of anxiety, david, or mood. Review of Systems Denies: fever, chills, nausea, emesis, diarrhea, chest pain, sob, dark or bloody stools, urinary symptoms, skin lesions, neuro symptoms. OBJECTIVE: Physical Exam NAD PERRL EOMI CTA B RR no murmur ABD soft nontender non distended No C/C/E Non focal neuro exam documented in this encounter Plan of Treatment Upcoming Encounters Date Type Department Care Team (Late st Contact Info) Description 11/09/2024 3:45 PM EDT Office Visit [facility] [place] [address] [place] [address] Lor Moore, [facility] [address] [place] [address] Scheduled Referrals Name Type Priority Associated Diagnoses Order Schedule AMB REFERRAL TO GASTROENTEROLOGY Outpatient Referral Routine Colon cancer screening Ordered: 10/18/2024 documented as of this encounter Goals Goal Patient Goal Type Associated Problems Recent Progress Patient-Stated? Author Eat better, exercise, reach an ideal body weight General No Mirela Gutierres, [place] documented as of this encounter Visit Diagnoses Diagnosis Attention disturbance- Primary Attention or concentration deficit Colon cancer screening Special screening for malignant neoplasms, colon Generalized anxiety disorder Bipolar affective disorder, manic, mild (HCC) Bipolar I disorder, most recent episode (or current) manic, mild documented in this encounter Discontinued Medications Medication Sig Discontinue Reason Start Date End Da te dextroamphetamine-amphet amine (ADDERALL) 10 mg Oral Tablet Take 1 Tablet by mouth 2 times daily. Reorder 09/19/2024 10/18/2024 documented as of this encounter Care Teams Tool Grinding Machine Operator Relationship Specialty Start Date End Date Silvano Tomas MD [address] [place] [address] PCP - General Internal Medicine 10/27/20 documented as of this encounter
--- OUTSIDE RECORDS SUMMARY | 2024-11-06 13:03 | XMS_ITS | Encounter Summary ---
Author Organization [place] [address] Care Team Providers Care Superintendent Stevedoring Name Role Phone Silvano Tomas MD Primary Care Provider [phone] Reason for Visit * Reason Onset Date Comments Medication Refill 11/01/2024 Encounter Details Date Type Department Care Team (Late st Contact Info) Description 11/01/2024 Refill SEP Travis [address] [place] [address] Khloe Cottrell APRN [address] [place], [place] [id number] Medication Refill Social History Tobacco Use Types Packs/Day Years Used Date Smoking Tobacco: Never Passive Smoke Exposure: Never Smokeless Tobacco: Never Alcohol Use Standard Drinks/Week Comments No 0 (1 standard drink = 0.6 oz pur e alcohol) Overall Financial Resource Strain (CARDI) Answe r Date Recorded How hard is it for you to pa y for the very basics like food, housing, medical care, and heating? Not hard at all 10/14/2022 PHQ-2 Answer Date Recorded PHQ-2 Total Score 0 06/13/2024 [facility] [place] of Occupat ional Health - Occupational Stress [...] Start Date Job End Date stay at [employer] Not on file Not on file Not on file documented as of this encounter Functional Status * Is the person deaf or does he/she have serious difficulty hearing? Answer Date of Assessment Author No 06/13/2024 2:08 PM Winnie Sanchez CCMA * Is the person blind or does he/she have serious difficulty seeing even when wearing glasses? Answer Date of Assessment Author No 06/13/2024 2:08 PM Winnie Sanchez CCMA * Does this person have serious difficulty walking or climbing stairs? Answer Date of Assessment Author No 06/13/2024 2:08 PM Winnie Sanchez CCMA * Does this person have difficulty dressing or bathing? Answer Date of Assessment Author No 06/13/2024 2:08 PM Winnie Sanchez CCMA * Because of a physical, mental or emotional condition, does this person have difficulty doing errands alone such as visiting a doctor's office or shopping? Answer Date of Assessment Author No 06/13/2024 2:08 PM Winnie Sanchez CCMA documented as of this encounter Mental Status * Because of a physical, mental or emotional condition, does this person have serious difficulty concentrating, remembering or making decisions? Answer Entry Date Author No 06/13/2024 2:08 PM EDT Winnie Rivas CCMA documented in this encounter Ordered Prescriptions Prescription Sig Dispense Quantity Refills Last Filled Start Date End Date clobetasoL (TEMOVATE) 0.05 % Top OintmentIndication s:Vaginal itching APPLY TOPICALLY TO THE AFFECTED AREA TWICE DAILY FOR 10 DAYS 45 g 11/01/2024 albuterol (PROVENTIL HFA;VENTOLIN HFA) 90 mcg/actuation Inhl HFA Aerosol InhalerIndications :Bronchitis Inhale 2 Puffs into the lungs every 4 hours as needed for Wheezing. 1 Each 2 11/01/2024 documented in this encounter Plan of Treatment Upcoming Encounters Date Type Department Care Team (Late st Contact Info) Description 11/09/2024 3:45 PM EDT Office Visit [facility] [address] [place] [address] Lor Moore CN [address] [place] [address] documented as of this encounter Goals Goal Patient Goal Type Associated Problems Recent Progress Patient-Stated? Author Eat better, exercise, reach an ideal body weight General No Mirela Gutierres, JEFFERSONA documented as of this encounter Visit Diagnoses Diagnosis Bronchitis Bronchitis, not specified as acute or chronic Vaginal itching Pruritus of genital organs documented in this encounter Discontinued Medications Medication Sig Discontinue Reason Start Date End Da te albuterol (PROVENTIL HFA;VENTOLIN HFA) 90 mcg/actuation Inhl HFA Aerosol InhalerIndications:Bron chitis Inhale 2 Puffs into the lungs every 4 hours as needed for Wheezing. Reorder 2024 11/01/2024 clobetasoL (TEMOVATE) 0.05 % Top OintmentIndications:Vag inal itching APPLY TOPICALLY TO THE AFFECTED AREA TWICE DAILY FOR 10 DAYS Reorder 2024 11/01/2024 documented as of this encounter Care Teams Superintendent Stevedoring Relationship Specialty Start Date End Date Silvano Tomas MD [address] [place] [address] PCP - General Internal Medicine 10/27/20 documented as of this encounter
--- OUTSIDE RECORDS SUMMARY | 2024-11-06 13:03 | XMS_ITS | Encounter Summary ---
Author Organization [place] [address] Care Team Providers Care Manager Advanced Name Role Phone Silvano Tomas MD Primary Care Provider [phone] Reason for Visit * Reason Onset Date Comments 911/Red Flag 08/21/2024 Per chaz Encounter Details Date Type Department Care Team (Late st Contact Info) Description 08/21/2024 Telephone [facility] [place] [facility] [place] [address] [place] [address] Hema Youssef MD [place] [facility] [place] [address] 911/Red Flag (Per mychart) Social History Tobacco Use Types Packs/Day Years Used Date Smoking Tobacco: Never Passive Smoke Exposure: Never Smokeless Tobacco: Never Alcohol Use Standard Drinks/Week Comments No 0 (1 standard drink = 0.6 oz pur e alcohol) Overall Financial Resource Strain ([facility]) Answe r Date Recorded How hard is it for you to pa y for the very basics like food, housing, medical care, and heating? Not hard at all 10/14/2022 PHQ-2 Answer Date Recorded PHQ-2 Total Score 0 06/13/2024 [facility] [place] of Occupat ional Health - Occupational Stress [...] Start Date Job End Date stay at [employer] Not on file Not on file Not [...] Winnie Rivas CCMA documented in this encounter Miscellaneous Notes * Telephone Encounter - Poncho Ortiz MA - 08/21/2024 1:20 PM EDT FYI * Telephone Encounter - Alee Alva - 08/21/2024 12:11 PM EDT Select the most appropriate reason for this telephone message: 911 Emergency Who is calling (be specific): Patient - Per MyChart Symptoms/Situation: Appointment Request From: Lesley Ventura With Provider: Hema Youssef MD [[facility] [place] [facility]] Preferred Date Range: 08/21/2024 - 08/23/2024 Preferred Times: Any Reason for visit: Routine or Follow-Up Office Visit Health Maintenance Topic: Comments: This anxiety is out of control. I am now struggling with depressive thoughts, crying all the time, thinking the worst of everything, NO motivation to do anything and its effecting my job. The diazapam works for a little bit to take the edge off but overall, I am a nervous, depressed, person. Were emergency services dispatched: No If No, was the patient advised to call 911 or proceed to the nearest emergency department if they are experiencing a life threatening condition: Yes Return Method of Communication: Phone Call Was patient transferred to Nurse Triage for additional help? N/A Additional Information: Message was left with PT to go to ER if symptoms are uncontrollable or get worse. She is scheduled for 08/23 @ 2:[address] Youssef documented in this encounter Plan of Treatment Upcoming Encounters Date Type Department Care Team (Late st Contact Info) Description 11/09/2024 3:45 PM EDT Office Visit [facility] [address] [place] [address] Lor Moore CNM [address] [place] [address] [place] [address] documented as of this encounter Goals Goal Patient Goal Type Associated Problems Recent Progress Patient-Stated? Author Eat better, exercise, reach an ideal body weight General No Mirela Gutierres, RMA documented as of this encounter Visit Diagnoses Not on filedocumented in this encounter Care Teams Manager Advanced Relationship Specialty Start Date End Date Silvano Tomas MD [facility] [place] [address] PCP - General Internal Medicine 10/27/20 documented as of this encounter
--- OUTSIDE RECORDS SUMMARY | 2024-11-06 13:03 | XMS_ITS | Encounter Summary ---
Author Organization [place] [address] Care Team Providers Care Complex Human Resources Manager Name Role Phone Silvano Tomas MD Primary Care Provider [phone] Arely Wilkinson BEVERAGE SPECIALIST Unavailable Unavail able Reason for Visit * Reason Onset Date Comments Medication Refill 06/15/2022 Encounter Details Date Type Department Care Team (Late st Contact Info) Description 06/15/2022 [facility]ill [facility] [address] [place] [address] Aisha May APRN Medication Refill Social History Tobacco Use Types Packs/Day Years Used Date Smoking Tobacco: Never Smokeless Tobacco: Never Alcohol Use Standard Drinks/Week Comments No 0 (1 standard drink = 0.6 oz pur e alcohol) PHQ-2 Answer Date Recorded PHQ-2 Total Score 0 11/17/2021 Sexually Active Control Partners Comments Yes Surgical Male hysterectomy Comments No Sex and Gender Information Value Date Recorded Sex Assigned at Not on file Legal Sex Female 11:44 PM EDT Gender Identity Not on file Sexual Orientation Not on file Occupation Industry Job Start Date Job End Date stay at [employer] Not on file Not on file Not on file COVID-19 Exposure Response Date Recorded In the last 10 days, have yo u been in contact with someone who was confirmed or suspected to have Coronavirus/COVID-19? No / Unsure 05/19/2022 11:48 AM EST documented as of this encounter Functional Status * Is the person deaf or does he/she have serious difficulty hearing? Answer Date of Assessment Author No 11/17/2021 7:12 AM EDT Angelo Sloan CCMA * Is the person blind or does he/she have serious difficulty seeing even when wearing glasses? Answer Date of Assessment Author No 11/17/2021 7:12 AM EDT Angelo Sloan CCMA * Does this person have serious difficulty walking or climbing stairs? Answer Date of Assessment Author No 11/17/2021 7:12 AM EDT Angelo Sloan CCMA * Does this person have difficulty dressing or bathing? Answer Date of Assessment Author No 11/17/2021 7:12 AM EDT Angelo Sloan CCMA * Because of a physical, mental or emotional condition, does this person have difficulty doing errands alone such as visiting a doctor's office or shopping? Answer Date of Assessment Author No 11/17/2021 7:12 AM EDT Angelo Sloan CCMA documented as of this encounter Mental Status * Because of a physical, mental or emotional condition, does this person have serious difficulty concentrating, remembering or making decisions? Answer Entry Date Author No 11/17/2021 7:12 AM EDT Angelo Sloan CCMA documented in this encounter Plan of Treatment Upcoming Encounters Date Type Department Care Team (Late st Contact Info) Description 11/09/2024 3:45 PM EDT Office Visit [facility] [address] [place] [address] Lor Moore, [facility] [address] [place] [address] documented as of this encounter Goals Goal Patient Goal Type Associated Problems Recent Progress Patient-Stated? Author Eat better, exercise, reach an ideal body weight General No Mirela Gutierres, [place] documented as of this encounter Visit Diagnoses Diagnosis Vaginal itching Pruritus of genital organs documented in this encounter Additional Health Concerns Infection Onset Date Last Indicated Resolved Time INFLUENZA 02/25/2023 02/25/2023 03/11/2023 10:1 2 PM EST documented as of this encounter Care Teams Complex Human Resources Manager Relationship Specialty Start Date End Date Silvano Tomas [place] [address] [place] [id number] PCP - General Internal Medicine 10/27/20 Arely Wilkinson, BEVERAGE SPECIALIST Washer Blanket 10/14/22 3 documented as of this encounter
--- OUTSIDE RECORDS SUMMARY | 2024-11-06 13:03 | XMS_ITS | Clinical Summary ---
Author Organization [facility] Address [address] [place] [address] Phone Care Team Providers Care Engineer Specialist Name Role Phone Silvano Tomas MD Primary Care Provider [phone] Allergies Active Allergy Reactions Criticality Noted Date Comments Amoxicillin Rash 02/22/2017 Iodine Anaphylaxis High 02/22/2017 Sts her heart stops Penicillins 01/29/2010 Promethazine Rash Metoclopramide 01/29/2010 Medications * This document contains information received from the source organization and may not represent a complete record from that organization. ergocalciferol (VITAMIN D) 1,250 mcg (50,000 unit) Oral Capsule Take 1 Capsule by mouth once a week. 4 Capsule 2 4 Active hydrOXYzine (VISTARIL) 25 mg Oral Capsule Take 1 Capsule by mouth 3 times daily as needed. 30 Capsule 5 Active diazePAM (VALIUM) 2 mg Oral Tablet Take 1 Tablet by mouth 2 times daily as needed for Anxiety. 30 Tablet 5 Active polyethylene glycol (GLYCOLAX) 17 gram/dose Oral PowderIndication s:Constipation, chronic TAKE 17 GRAMS MIXED IN LIQUID AND DRINK TWICE DAILY 510 g 5 5 Active fluticasone propionate (FLONASE) 50 mcg/actuation Nasl [place], SuspensionIndica tions:Seasonal allergic rhinitis, unspecified trigger 1 [place] by Nasal route daily. 1 Each 2 5 Active cetirizine (ZYRTEC) 10 mg Oral TabletIndication s:Bronchitis Take 1 Tablet by mouth daily. 30 Tablet 2 5 Active dextroamphetamin e-amphetamine (ADDERALL) 10 mg Oral Tablet Take 2 Tablets by mouth daily. 60 Tablet 5 Active OLANZapine (ZYPREXA) 5 mg Oral TabletIndication s:bipolar disorder,depress ion associated with bipolar disorder, adjunct Take 1 Tablet by mouth 2 times daily. Indications: depression associated with bipolar disorder, adjunct treatment, manic-depressio n 60 Tablet 3 5 Active albuterol (PROVENTIL HFA;VENTOLIN HFA) 90 mcg/actuation Inhl HFA Aerosol InhalerIndicatio ns:Bronchitis Inhale 2 Puffs into the lungs every 4 hours as needed for Wheezing. 1 Each 2 5 Active clobetasoL (TEMOVATE) 0.05 % Top OintmentIndicati ons:Vaginal itching APPLY TOPICALLY TO THE AFFECTED AREA TWICE DAILY FOR 10 DAYS 45 g 5 Active ondansetron (ZOFRAN) 4 mg Oral Tablet Take 1 Tablet by mouth every 6 hours as needed for Nausea for up to 10 days. 30 Tablet 5 11/12/19 25 Active Active Problems Patient Care Coordination No te Formatting of this note migh t be different from the original. INEZ 10/10/2017 as expected [id number] CSA signed 11/04/2016 UDS 03/02/24 as expected Atomoxetine has been approved from 02/13/2017-03/27/2039 Care gap audit completed by Tae Marshall, Compliance Review on 11/14/2023. Problem Noted Date Diagnosed Date Attention disturbance 10/18/2024 Overview (10/18/2024): Issues with short term memory. Change dosing to 20 mg daily. Follow up in one month. Migraine without aura and wi thout status migrainosus, not intractable 01/02/2020 Liver cyst 05/28/2019 Bipolar affective disorder, manic, mild 02/15/20 18 Overview (09/19/2024): Tried Trintellix, Prozac, Lexapro, Paxil, Zoloft, Celexa, Pristiq, Abilify Tried Vraylar as well. Seroquel made her too sleepy. All were ineffective or had side effects. No longer on Prozac due to side effects. Increasing zyprexa to BID has helped. Sleeping better. Assessment & Plan (06/13/2024 3:11 PM EDT): Stable on zyprexa Assessment & Plan (05/14/2024 4:39 PM EST): Stop Rexulti, add Zyprexa. Continue Auvelity. Assessment & Plan (03/01/2024 2:07 PM EST): Stable on current medications - continue same. Stable with ADHD Assessment & Plan (09/19/2023 1:33 PM EDT): Doing well on Auvelity and Rexulti. Assessment & Plan (06/22/2021 3:46 PM EDT): Resume Zyprexa for control of bipolar symptoms. Assessment & Plan (02/13/2021 9:47 AM EST): Stable on current medications. Some increased holiday stress. Assessment & Plan (05/30/2020 10:32 AM EST): Stable on current medications - Zyprexa and Trintellix. Seasonal allergic rhinitis due to pollen 017 Overview (08/04/2016): Daily nasal congestion with clear rhinorrhea. Vitamin D deficiency 03/31/2016 Overview (08/04/2016): On replacement Assessment & Plan (06/13/2024 3:11 PM EDT): Orders: VITAMIN D 25 HYDROXY; Future Generalized anxiety disorder 01/07/2016 Overview (09/19/2024): Denies HSI, AVH, anhedonia, despair Has been on multiple regiments. Now doing well on zyprexa. Rarely taking valium. Assessment & Plan (10/21/2022 3:46 PM EDT): Was better controlled when on Trintellix. Had stopped this after ED visit when they told her might be causing her panic attacks. But since that time, has worsened with severe depression feelings daily. Previously, Trintellix had been working. S/P breast lumpectomy 01/07/2016 Overview (08/04/2016): 12/2015: Mammogram is read as a benign finding with there being a previous fibroadenoma. No evidence of malignancy or suspicious calcifications Routine screening in a year Muscle spasms of neck 01/07/2016 Overview (08/04/2016): stable BPV (benign positional vertigo) 01/07/2016 Overview (08/04/2016): Rare Antivert usage. Depression Overview (09/19/2024): Denies HSI, AVH, anhedonia, despair Has been on multiple regiments. Now doing well on zyprexa. Assessment & Plan (07/08/2023 4:06 PM EDT): Change zoloft to prozac. Needs counseling and psychiatry. Denies suicidal ideation, but very depressed. Advised her (as I have in the past) that she needs to seek out professional mental health. Resolved Problems Problem Noted Date Diagnosed Date Resolved Date Screening for colon cancer 04/27/2022 0 06/13/2024 Overview (04/27/2022): Added automatically from request for surgery [id number] Screening for colon cancer 10/12/2019 1 04/15/2020 Overview (10/12/2019): Added automatically from request for surgery [id number] Left ureteral stone 04/29/2019 06/14/19 25 Pyelonephritis 11/09/2017 10/10/2018 Sepsis 11/09/2017 01/30/2018 Thyroid disorder 02/08/2023 Encounters Date Type Department Care Team Description 11/01/2024 Refill [facility] [address] [place] [address] Khloe CottrellPOP Medication Refill 11/01/[address] [place] [address] Hema Youssef MD Medication Refill 10/18/2024 1:00 PM EDT Office Visit [address] [place] [address] Hema Youssef MD Attention disturbance (Primary Dx); Colon cancer screening; Generalized anxiety disorder; Bipolar affective disorder, manic, mild (HCC) 09/19/2024 1:40 PM EDT Office Visit [address] [place] [address] Hema Youssef MD Bipolar affective disorder, manic, mild (HCC) (Primary Dx); Generalized anxiety disorder; Severe episode of recurrent major depressive disorder, without psychotic features (HCC); Attention disturbance 09/06/2024 Orders Only [address] [place] [address] Hema Youssef MD Bipolar affective disorder, manic, mild (HCC) (Primary Dx) 08/21/[address] [place] [address] Hema Youssef MD 911/Red Flag (Per mychart) 08/07/[address] [place] [address] Silvano Tomas MD Medication Refill from Last 3 Months Immunizations Immunization Administration Dates Next Due DTaP 11/04/1980, 0,03/03/1978,1977,1975 Hepatitis B, Adult 11/22/2016 Hepatitis B, Unspecified Formulation 06/22/2016, 05/25/2016 IPV 11/04/1980, 0,09/30/1977,1975 Influenza Seasonal Injectable PF 06/13/2024 Influenza Vaccine Quadrivalent 12/21/2016 Influenza Vaccine Quadrivalent PF 01/23/2021 Influenza, Split (Incl. Mary fied Surface Antigen) 12/22/2018 MMR 08/27/2016,05/22/1979 Moderna SARS-CoV-2 Booster V accine 18+ Yrs (Light Blue Border) 05/11/2021 Moderna SARS-CoV-2 Vaccine 1 2+ Yrs (Light blue border) 10/14/2020 PPD Test 06/04/2024, 1,10/14/2020,2018,10/03/2018,07/07/2017,06/29/2017 Td, Unspecified Formulation 05/10/2017, 1 Tdap 06/29/2017,05/26/1996 Surgical History Surgery Date Site/Laterality Comments SECTION TUBAL LIGATION URETEROSCOPY 04/29/2019 Left cystoscopy Left ureteroscopy with laser lithotripsy stone manipulation and left stent placement; Surgeon: Lor Alvarez MD; Location: [facility] MAIN OR; Service: Urology Medical devices from this surgery are in the Medical Devices section. HYSTERECTOMY, SUPRACERVICAL LSH, endometriosis. SUPRACERVICAL ABDOMEN SURGERY 2009 hysterectomy HYSTERECTOMY 2009 Medical History Medical History Date Comments Anxiety Vitamin D deficiency Adult ADHD Thyroid disorder pt denies Migraine without aura and wi thout status migrainosus, not intractable 01/02/2020 Depression Family History Medical History Relation Name Comments Substance Abuse Brother 1 Substance Abuse Brother 2 No Known Problems Brother 3 Alcohol Abuse Father Regino Martell COPD Father Regino Martell Substance Abuse Father Regino Martell Alcoho lism No Known Problems Half-Sister Arthritis Mother Brenda Martell Asthma Mother Brenda Martell Cancer Mother Brenda Martell Leukemia Diabetes Mother Brenda Martell High Blood Pressure Mother Brenda Martell Cancer Paternal Grandmother Rebekah Lynda [place] n Cancer, breast cancer No Known Problems Sister 1 No Known Problems Sister 2 No Known Problems Sister 3 No Known Problems Son Breast Cancer Neg Hx Ovarian Cancer Neg Hx Relation Name Status Comments Brother 1 Alive Brother 2 Alive Brother 3 Alive Father Regino Martell Half-Sister Alive Maternal Grandfather Maternal Grandmother Mother Brenda Martell Alive Paternal Grandfather Paternal Grandmother Rebekahchidi Hutchisonhicoleman Sister 1 Alive Sister 2 Alive Sister 3 Alive Son Social History Tobacco Use Types Packs/Day Years Used Date Smoking Tobacco: Never Passive Smoke Exposure: Never Smokeless Tobacco: Never Tobacco Cessation:Counseling Given: Not Answered Alcohol Use Standard Drinks/Week Comments No 0 (1 standard drink = 0.6 oz pur e alcohol) Overall Financial Resource Strain (CARDIA) Answe r Date Recorded How hard is it for you to pa y for the very basics like food, housing, medical care, and heating? Not hard at all 10/14/2022 PHQ-2 Answer Date Recorded PHQ-2 Total Score 0 06/13/2024 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 on file Not on file Not on file Obstetrics History Para Term AB IAB SAB Ectopic Multiple Livin g Live Births 3 3 3 3 3 Date Outcome GA Total Labor Labor/2nd/3rd Weight Sex Type Anes PTL Seema A1 A5 Name Clin Term CSP Living Term DIVISION OPERATIONS MANAGER Living Term DIVISION OPERATIONS MANAGER Living Last Filed Vital Signs Vital Sign Reading [...] Mass Index 25.06 10/18/2024 12:56 PM EDT Plan of Treatment Upcoming Encounters Date Type Department Care Team (Late st Contact Info) Description 11/09/2024 3:45 PM EDT Office Visit [facility] [address] [place] [address] [address] [place] [address] Lor Moore, [facility] [address] [place] [address] Health Maintenance Due Date Last Done Comments Cologuard 07/29/2020 Colon Cancer Screening 07/29/2020 Colonoscopy 07/29/2020 FIT 07/29/2020 Sigmoidoscopy 07/29/2020 Virtual Colonography 07/29/2020 COVID-19 Vaccine ( season) 2023 05/11/2021, 10/14/2020, 09/12/2020 Influenza Vaccine (#1) 2024 , 01/23/2021, 12/22/2018, Additional history exists Pap Smear 05/20/2025 05/20/2022, 08/0 06/2019, 03/01/2016, Additional history exists Annual Wellness Exam 06/13/2025 06/13/2024, 09/19/2023, 10/30/2021 Breast Cancer Screening 10/30/2025 10/31/19, 09/27/2023, 01/04/2017, Additional history exists Cervical Cancer Screening 05/20/2027 HPV/Pap Cotest 05/20/2027 05/20/2022 DTaP/TDaP/Td (9 - Td or Tdap) 06/30/2027 06/29/2017, 05/10/2017, 05/26/1996, Additional history exists Hepatitis B Vaccine Completed 11/22/2016, 06/22/2016, 05/25/2016 Meningococcal B Vaccine Aged Out No l onger eligible based on patient's age to complete this topic Pneumococcal Vaccine 0-49 Aged Out No longer eligible based on patient's age to complete this topic Goals Goal Patient Goal Type Associated Problems Recent Progress Patient-Stated? Author Eat better, exercise, reach an ideal body weight General No Mirela Gutierres RMA Medical Devices Implanted Type Area Dough Puncher Device Identifier Shelf Expiration Date Model / Serial / Lot Stent Uret 6fr 22cm Pgtl Crv Tpr Tip Bldr Mrk Loprfl Lg Inr - [id number] Implanted:Qty : 1 on 04/29/2019 by Lor Alvarez MD at [facility] Left: Ureter [employer]:MICROVASIVE: UROLOGY [id number] 11/06/2021 [id number] / [id number] Procedures Procedure Name Priority Date/Time Associated Diagnosis Comments MM MAMMO DIGITAL LAMBERT DIAGN RIGHT Routine 10/31/2023 7:45 AM EDT Abnormal mammogram MINERAL SURVEYING TECHNICIAN CYTOLOGY REQUEST (PAP ONLY) Routine 05/20/2022 10:58 AM EST Well woman exam with routine gynecological exam from Last 3 Months or Most Recently Relevant to Health Maintenance Results * MM MAMMO DIGITAL LAMBERT DIAGN RIGHT (10/31/2023 7:45 AM EDT) Anatomical Region Laterality Modality Breast Right Mammography 10/31/2023 9:22 AM EDT Impressions 10/31/2023 9:22 AM EDT Incomplete-need additional imaging evaluation ([id number]-3) There is an oval circumscribed 0.6 cm mass in the upper outer quadrant of the right breast which corresponds to the finding on screening mammography from 09/27/2023. Its appearance is most compatible with a benign intramammary lymph node. It will be further evaluated with targeted ultrasound, to be reported separately. ~ RECOMMENDATION: Ultrasound of the right breast. This ultrasound examination will be performed on the same date and reported separately. ~ DISCLAIMER * Any patient with a palpable abnormality, unexplained by breast imaging, should be managed on clinical basis by the attending physician. * Breast imaging has a false negative rate of 15%. * The patient was notified by mail of the results of this examination. *The patient's information was entered into a reminder system with a target due date for the next mammogram, in accordance with the [employer] [employer] and the Society of Breast Imaging recommendations. Narrative 10/31/2023 9:22 AM EDT Procedure:MM MAMMO DIGITAL LAMBERT DIAGN RIGHT ~ Reason for exam: addl evaluation requested from abnormal screening. R92.8-Other abnormal and inconclusive findings on diagnostic imaging of [id number]; 48-year-old returns for additional views of the right breast to evaluate a focal asymmetric density in the upper outer right breast on screening mammography from 09/27/2023. ~ MM MAMMO DIGITAL LAMBERT DIAGN RIGHT CC and MLO view(s) were taken of the right breast. The breast tissue is heterogeneously dense. This may lower the sensitivity of mammography. Prior study comparison: Compared with prior studies, the most recent being 09/27/23, 01/04/17, 01/16/16. Additional views of the right breast were performed with tomosynthesis and include spot compression CC and MLO views and full 90 degree mediolateral view. Corresponding to the focal asymmetric density in the upper outer quadrant of the right breast on screening mammography, there is an oval circumscribed 0.6 cm mass in the upper outer quadrant of the right breast, middle depth. This is located adjacent to a calcified artery and has a central lucent notch, most suggestive of an intramammary lymph node. This does not appear significantly changed dating back to 01/16/2016. ~ Procedure Note Aditya Mcadams MD - 10/31/2023 Procedure:MM MAMMO DIGITAL LAMBERT DIAGN RIGHT ~ Reason for exam: addl evaluation requested from abnormal screening. R92.8-Other abnormal and inconclusive findings on diagnostic imaging of [id number]; 48-year-old returns for additional views of the right breast to evaluate a focal asymmetric density in the upper outer right breast on screening mammography from 09/27/2023. ~ MM MAMMO DIGITAL LAMBERT DIAGN RIGHT CC and MLO view(s) were taken of the right breast. The breast tissue is heterogeneously dense. This may lower thesensitivity of mammography. Prior study comparison: Compared with prior studies, the most recentbeing 09/27/23, 01/04/17, 01/16/16. Additional views of the right breast were performed with tomosynthesisand include spot compression CC and MLO views and full 90 degreemediolateral view. Corresponding to the focal asymmetric density in the upper outer quadrant of the right breast on screening mammography, there is an oval circumscribed 0.6 cm mass in the upper outer quadrant of the rightbreast, middle depth. This is located adjacent to a calcified artery and has a central lucent notch, most suggestive of an intramammary lymph node.This does not appear significantly changed dating back to 01/16/2016. ~ IMPRESSION: Incomplete-need additional imaging evaluation (ETZ-Nbjamhux-2) There is an oval circumscribed 0.6 cm mass in the upper outer quadrantof the right breast which corresponds to the finding on screeningmammography from 09/27/2023. Its appearance is most compatible with a benignintramammary lymph node. It will be further evaluated with targeted ultrasound, to be reported separately. ~ RECOMMENDATION: Ultrasound of the right breast. This ultrasound examination will be performed on the same date andreported separately. ~ DISCLAIMER * Any patient with a palpable abnormality, unexplained by breast imaging, should be managed on clinical basis by the attending physician. * Breast imaging has a false negative rate of 15%. * The patient was notified by mail of the results of this examination. *The patient's information was entered into a reminder system with atarget due date for the next mammogram, in accordance with the [employer] [employer] and the Society of Breast Imaging recommendations. Silvano Tomas MD IM MAMMOGRAPHY ORDERABLES Fin al Result * MINERAL SURVEYING TECHNICIAN CYTOLOGY REQUEST (PAP ONLY) (05/20/2022 10:58 AM EST) CASE REPORT Gynecologic Cytology Report Case: [id number] Authorizing Provider: Aisha May, Collected: 05/20/2022 1058 LUBRICATING MACHINE TENDER Ordering Location: [facility] Received: 05/20/2022 1058 First Screen: Nikkie Joya CT Specimen: LIQUID-BASED PAP - CERVICAL/ENDOCERV ICAL, Cervix, Endocervical 05/24/2022 11:09 AM EST [facility] PAP FINAL DIAGNOSIS Negative for intraepithelial lesion or malignancy 05/24/2022 11:09 AM EST [facility] at 1109 EST MICROSCOPIC DESCRIPTION Microscopic examination is performed and the findings corroborate the diagnosis. 05/24/2022 11:09 AM EST [facility] PAP SMEAR ADEQUACY Satisfactory for evaluation 05/24/2022 11:09 AM EST [facility] ENDOCERVICAL T-ZONE Transformation zone absent. 05/24/2022 11:09 AM EST [facility] EMBEDDED IMAGES 11:09 AM EST [facility] PAP DISCLAIMER The Pap Smear is a screening test that aids in the detection of cervical cancer and cancer precursors. Both false positive and false negative results can occur. The test should be used at regular intervals, and positive results should be confirmed before definitive therapy. Processed using the ThinPrep Utility Lineman Automated cytology screening device ([employer]). 05/24/2022 11:09 AM EST [facility] Thin Prep ENDOCERVICAL STRUCTURE / Unknown 05/20/2022 10:58 AM EST 05/20/2022 10:58 AM EST us Aisha May LUBRICATING MACHINE TENDER CYTOLOGY ORDERABLES Fi nal Result [facility] [address] [place] [address] from Last 3 Months or Most Recently Relevant to Health Maintenance [place] [place] [address] PLAN BY [facility] Suellen QUIÑONES [address] PLAN BY [facility] [employer] [place] [address] [place] [address] Advance Directives For more information, please contact: [phone] * Full Code (Latest Code Status on File) Date Activated Date Inactivated Comments 11/10/2017 2:31 PM 11/12/2017 7:10 PM Care Teams Engineer Specialist Relationship Specialty Start Date End Date Silvano Tomas [place] [address] [place] [address] PCP - General Internal Medicine 10/27/20
--- OUTSIDE RECORDS SUMMARY | 2024-11-06 13:03 | XMS_ITS | Encounter Summary ---
Author Organization [place] [address] Care Team Providers Care Composite Engineer Name Role Phone Silvano Tomas MD Primary Care Provider [phone] Reason for Visit * Reason Onset Date Comments Medication Refill 11/01/2024 Encounter Details Date Type Department Care Team (Late st Contact Info) Description 11/01/2024 Refill SEP Travis [facility] [place] [address] [place] [address] Hema Youssef MD [facility] [address] Medication Refill Social History Tobacco Use Types [...] Date Recorded PHQ-2 Total Score 0 06/13/2024 [facility] [place] [facility] Occupat ional [facility] - Occupational Stress [...] Start Date Job End Date stay at [employer] [facility] [employer] Not on file Not on file Not [...] Refills Last Filled Start Date End Date OLANZapine (ZYPREXA) 5 mg Oral TabletIndications: bipolar disorder,depressio n associated with bipolar disorder, adjunct Take 1 Tablet by mouth 2 times daily. Indications: depression associated with bipolar disorder, adjunct treatment, manic-depression 60 Tablet 3 11/01/2024 documented in this encounter Plan of Treatment Upcoming Encounters Date Type Department Care Team (Late st Contact Info) Description 11/09/2024 3:45 PM EDT Office Visit [facility] [address] [facility] [place] [address] Lor Moore, [facility] [address] [place] [address] documented as of this encounter Goals Goal Patient Goal Type Associated Problems Recent Progress Patient-Stated? Author Eat better, exercise, reach an ideal body weight General No Mirela Gutierres, Winnie documented as of this encounter Visit Diagnoses Not on filedocumented in this encounter Discontinued Medications Medication Sig Discontinue Reason Start Date End Da te OLANZapine (ZYPREXA) 5 mg Oral TabletIndications:bipo lar disorder,depression associated with bipolar disorder, adjunct Take 1 Tablet by mouth 2 times daily. Indications: depression associated with bipolar disorder, adjunct treatment, manic-depression Reorder 09/06/2024 11/01/2024 documented as of this encounter Care Teams Composite Engineer Relationship Specialty Start Date End Date Silvano Tomas MD [address] [facility] [id number] PCP - General Internal Medicine 10/27/20 documented as of this encounter
[2024-11-06 13:08] LABS: COC Drug Screen Collection Only
[2024-11-07 09:15] LABS: Hep A Ab, Total Negative (Negative)
[2024-11-07 10:12] LABS: Measles Antibodies, IgG 78.7 AU/mL (Immune >16.4); Mumps Abs, IgG >300.0 AU/mL (Immune >10.9); Rubella Antibodies, IgG 3.64 index (Immune >0.99)
== END ==
LOC: LAB 12:58
CPT/HCPCS: 36415; 86480; 86706; 86708; 86735; 86762; 86765; 86787

== ENCOUNTER 2025-03-06 18:20 | Emergency (ER) | payer MEDICAID, SELFPAY ==
[2025-03-06] VITALS (8 sets, daily range): BP systolic 90–142; BP diastolic 69–97; PULSE 64–80; RESP 11–18; TEMP 36.7–36.8; O2SAT 96–100; BMI 22.6
--- NOTE | 2025-03-06 18:18 | ECG_ITS ---
APPROVED REPORT Exam: Resting ECG HR:83 bpm ECG Measurements Heart Rate 83 AXES MO 155 P 71 QRSd 94 QRS 56 QT 354 T 70 QTc 394 Conclusion Normal sinus rhythm Normal axis Normal intervals No STEMI Electronically signed by : Ben Marie, 03/07/2025 23:20:14
--- NOTE | 2025-03-06 18:33 | XR_ITS ---
PROCEDURE INFORMATION: Exam: XR Chest Exam date and time: 03/06/2025 7:15 PM Age: 49 years old Clinical indication: Chest wall pain; Additional info: Chest pain TECHNIQUE: Imaging protocol: Radiologic exam of the chest. Views: 2 views. COMPARISON: CT ANGIO CHEST PE PROTOCOL 12/22/2022 6:40 PM FINDINGS: Lungs: The lungs appear clear. No focal areas of consolidation. Pleural spaces: No pleural effusions. Negative for pneumothorax. Heart/Mediastinum: Cardiac silhouette and pulmonary vasculature are within range of normal. Bones/joints: There is no evidence of acute fracture. There is a minor convex right thoracic scoliosis. IMPRESSION: Negative for an acute cardiopulmonary abnormality.
[2025-03-06 18:45] LABS: Hematocrit 44.4 % (37.0-47.0); Hemoglobin 14.2 g/dL (12.2-16.2); Immature Granulocytes % 0.3 %; Mean Corpuscular HGB Conc 32.0 g/dL (31.8-35.4); Mean Corpuscular Hemoglobin 29.0 pg (27.0-31.2); Mean Corpuscular Volume 90.6 fl (81-99); Nucleated Red Blood Cells % 0 %; Platelet Count 330 K/mm3 (142-424); Red Blood Count 4.90 M/mm3 (4.20-5.40); Red Cell Distribution Width-SD 41.2 fL; White Blood Count 6.8 K/mm3 (4.8-10.8)
[2025-03-06] MEDS: ONDANSETRON 4MG/2ML VIAL 4 MG IV (18:48)
[2025-03-06] MEDS: ASPIRIN 325MG TABLET 325 MG PO (18:48)
[2025-03-06] MEDS: MORPHINE 4MG/ML SYRINGE 4 MG IV (18:48)
[2025-03-06 18:55] LABS: Alanine Aminotransferase 17 U/L (12-78); Albumin Level 5.0 g/dl (3.5-5.0); Albumin/Globulin Ratio 1.5 (1.1-1.8); Alkaline Phosphatase 109 U/L (38-126); Anion Gap 17.7 mEq/L (5-15); Aspartate Amino Transferase 22 U/L (14-36); Bilirubin,Total 0.5 mg/dl (0.2-1.3); Blood Urea Nitrogen 16 mg/dl (7-17); Calcium 9.2 mg/dl (8.4-10.2); Carbon Dioxide 27 mmol/L (22.0-30.0); Chloride 98 mmol/L (98-107); Creatinine Clearance Estimated 58 mL/min (50-200); Creatinine,Serum 1.00 mg/dl (0.52-1.04); Estimated Glomerular Filt Rate 59 ml/min (>60); GFR (African American) 71 ML/MIN (>60); Globulin 3.4 g/dL (1.3-3.2); Glucose 120 mg/dl (74-100); Lipase 69 U/L (23-300); Potassium 3.7 mmoL/L (3.5-5.1); Sodium 139 mmol/L (136-145); Total Protein,Serum 8.4 g/dl (6.3-8.2)
[2025-03-06 18:58] LABS: D-Dimer 0.33 ug/mL (0.0-0.5)
[2025-03-06 19:06] LABS: HCG Qualitative, Serum Negative (Negative)
[2025-03-06 19:09] LABS: Troponin I < 0.01 ng/ml (0.00-0.034)
[2025-03-06 20:00] LABS: Hepatitis C Ab Qual. W/ RFX NEGATIVE (Negative)
--- NOTE | 2025-03-06 21:53 | ED_ITS ---
Discharge Plan Disposition Patient Disposition: Home, Self-Care Condition: Good Prescriptions Prescriptions: No Action dextroamphetamine-amphetamine 10 mg tablet 20 mg PO DAILY Patient Comments: TAKE 1 TABLET BY MOUTH DAILY. Trintellix 10 mg tablet 20 mg PO DAILY Patient Comments: TAKE 1 TABLET BY MOUTH DAILY ondansetron 4 mg tablet,disintegrating 4 mg PO DAILY Referrals Follow up/Referrals: Silvano Tomas [Primary Care Provider, Medical] - See instructions Activity Restrictions/Add. Instructions Additional Instructions/Restrictions: If you develop worsening chest pain, shortness of breath, respiratory distress, or infectious symptoms such as fever please return. Otherwise, please follow up with your primary care doctor for further evaluation Clinical Impressions Clinical Impression: Chest pain Qualifiers: Chest pain type: unspecified Qualified Code(s): R07.9 - Chest pain, unspecified Print Language Print Language: Ecuadorean Discharge ED Provider: Ben Marie General Chief Complaint: Chest Pain Stated Complaint: Chest Pain Time Seen by Provider: 03/06/25 18:27 Mode of Arrival: Ambulatory Source of Information: Patient Description of Symptoms (Recalled from ER Triage Doc. by RN): patient states today around 4pm she began having substernal chest pain that she describes as pressure with shortness of breath anxious and nausea. she reports she is day 10 without adderal History of Present Illness HPI narrative: This is a 49-year-old female patient, with past medical history of ADHD, who is presenting to the emergency department today for evaluation of chest pain. Patient states that she has felt pain similar to this in the past when she is having a panic attack and she currently feels like she might be having a panic attack. Regardless, she notes that her pain is pleuritic in nature and is radiating throughout her precordium. She does not feel her pain in her jaw or her arms. She is not having overt dyspnea. No cough or production of phlegm. No abdominal pain. No nausea, vomiting, or diarrhea. Related Data Home Medications ?Medication ?Instructions ?Recorded ?Confirmed dextroamphetamine-amphetamine 10 20 mg PO DAILY ADHD 0 10/06/22 10/06/22 mg tablet ondansetron 4 mg disintegrating 4 mg PO DAILY Nausea 0 10/06/22 10/06/22 tablet vortioxetine 10 mg tablet 20 mg PO DAILY anxiety 10/0610/06/22 (Trintellix) Allergies Allergy/AdvReac Type Severity Reaction Status Date / Time No Known Allergies Allergy Verified 03/01/22 17:17 [facility] Disclaimer: The information contained in this section may have been updated after the patient was seen, as this information can be updated by other users. Social History (Updated 03/02/22 @ 13:58 by Leti Null MD) Smoking Status: Never smoker alcohol intake: never current occupational status: employed Travel in the last 8 weeks?: None Have you lived/traveled outside US in past 30 days?: No Contact w/someone who lives/traveled outside US past 30 days?: No Exposure to someone with infectious disease in past 14 days?: No Do you have a fever (greater than 100.4 F or 38 C)?: No Have you tested positive for COVID-19?: No Exposed to someone with COVID-19 in past 14 days?: No Do you have a sore throat?: No Do you have a cough?: No Do you have any weakness?: No Do you have any diarrhea?: No Are you experiencing any unusual bleeding?: No Do you have any muscle aches/pain?: No Do you have any abdominal pain?: No Are you experiencing loss of taste or smell?: No ROS Obtained: Yes Systems reviewed as appropriate & no additional complaints except as documented Physical Exam General General appearance: other (See MDM) Respiratory Respiratory exam: Present other (See MDM) Cardiovascular Cardiovascular exam: Present other (See MDM) Neurological Exam Neurological exam: Present other (See MDM) HEART Score HEART Score HEART Score assessment performed?: Yes History (anamnesis): Moderately suspicious ECG: Normal Age: 45-65 years Risk factors: No known risk factors Troponin: </= normal limit HEART Score: 2 Critical Care Critical Care Time Critical Care Time: No Medical Decision Making Medical Records Medical records reviewed: Yes I reviewed the patient's medical records. Kt Inquiry Pt receiving controlled substance: No Kt was queried for this patient: No Vital Signs Vital Signs: 03/06/25 18:21 03/06/25 19:00 03/06/25 19:06 Temperature 98.1 F Temperature Source Oral Pulse Rate 80 65 Pulse Rate [Right Radial] 78 Respiratory Rate 15 12 12 Blood Pressure 120/74 114/81 Blood Pressure [Right Arm] 142/97 H Blood Pressure Mean Blood Pressure Mean [Right Arm] 112 Blood Pressure Source [Right Arm] Automatic Cuff Blood Pressure Position [Right Arm] Supine 02 Sat by Pulse Oximetry 99 99 99 Oxygen Delivery Method Room Air Room Air Room Air 03/06/25 19:18 03/06/25 19:30 03/06/25 20:00 Temperature Temperature Source Pulse Rate 69 67 64 Pulse Rate [Right Radial] Respiratory Rate 11 L Blood Pressure 114/81 123/78 90/69 L Blood Pressure [Right Arm] Blood Pressure Mean 76 Blood Pressure Mean [Right Arm] Blood Pressure Source [Right Arm] Blood Pressure Position [Right Arm] 02 Sat by Pulse Oximetry 96 96 97 Oxygen Delivery Method Room Air Room Air Room Air 03/06/25 21:25 Temperature Temperature Source Pulse Rate 76 Pulse Rate [Right Radial] Respiratory Rate 18 Blood Pressure 106/73 L Blood Pressure [Right Arm] Blood Pressure Mean Blood Pressure Mean [Right Arm] Blood Pressure Source [Right Arm] Blood Pressure Position [Right Arm] 02 Sat by Pulse Oximetry 98 Oxygen Delivery Method Room Air Lab Data Labs: Lab Results 03/06/25 18:22: WBC 6.8, RBC 4.90, Hgb 14.2, Hct 44.4, MCV 90.6, MCH 29.0, MCHC 32.0, RDW 12.5, Plt Count 330, MPV 8.9, Neut % (Auto) 57.6, Lymph % (Auto) 28.1, Anderson % (Auto) 9.5 H, Eos % (Auto) 3.8, Baso % (Auto) 0.7, Neut # (Auto) 3.9, Lymph # (Auto) 1.9, Anderson # (Auto) 0.7, Eos # (Auto) 0.3, Baso # (Auto) 0.1, D- Dimer 0.33, Sodium 139, Potassium 3.7, Chloride 98, Carbon Dioxide 27, Anion Gap 17.7 H, BUN 16, Creatinine 1.00, Estimated Creat Clear 58, Estimated GFR 59, Est GFR ( Amer) 71, Glucose 120 H, Calcium 9.2, Total Bilirubin 0.5, AST 22, ALT 17, Alkaline Phosphatase 109, Troponin I < 0.01, Total Protein 8.4 H, Albumin 5.0, Globulin 3.4 H, Albumin/Globulin Ratio 1.5, Lipase 69, Serum HCG, Qual Negative, HCV Ab NUVIA w/Rflx PCR Qn Negative 03/06/25 21:23: Troponin I < 0.01 03/06/25 18:22 03/06/25 18:22 Response Orders (Tests/Meds): ED MEDICATIONS Discontinued Medications Generic Name Dose Route Start Last Admin Trade Name Jennifer PRN Reason Stop Dose Admin Aspirin 325 mg 03/06/25 18:33 03/06/25 18:48 Aspirin 325mg Tablet PO 03/06/25 18:34 325 mg ONCE ONE Administration Morphine Sulfate 4 mg 03/06/25 18:33 03/06/25 18:48 Morphine 4mg/Ml Syringe IV 03/06/25 18:34 4 mg ONCE ONE Administration Ondansetron HCl 4 mg 03/06/25 18:33 03/06/25 18:48 Ondansetron 4mg/2ml Vial IV 03/06/25 18:34 4 mg ONCE ONE Administration ORDERS Category Date Time Status CXR 2 view (NOT portable) [XR chest 2V] Stat Exams 03/06/25 18:33 Completed CBC w/Auto Diff [Complete Blood Count Auto Diff] Stat Lab 03/06/25 18:22 Completed CMP [Comprehensive Metabolic Panel] Stat Lab 03/06/25 18:22 Completed D-Dimer Stat Lab 03/06/25 18:22 Completed HCG Qualitative, Serum Stat Lab 03/06/25 18:22 Completed HIV Combo Stat Lab 03/06/25 18:22 Received Hepatitis C Ab Qual. W/ RFX Stat Lab 03/06/25 18:22 Completed Lipase Stat Lab 03/06/25 18:22 Completed Troponin I Q3H Lab 03/06/25 21:23 Completed Troponin I Q3H Lab 03/07/25 00:45 Ordered Troponin I Stat Lab 03/06/25 18:22 Completed MDM Narrative Medical Decision Narrative: In summary, this is a 49-year-old female patient who is presenting to the emergency department today for relatively sudden onset chest pain that began prior to arrival. She tells me that she feels as if she could be having a panic attack as this pain is similar to panic attacks that she has had in the past. Comorbidities do include a history of ADHD as well as anxiety. On initial evaluation of the patient they were resting comfortably in no acute distress and nontoxic in appearance. They are hemodynamically stable, saturating well room air, and are neurologically intact. On physical examination her heart and lungs are clear to auscultation bilaterally. She does appear anxious. Her abdomen is soft and nontender. She has no lower extremity erythema or edema. The patient tells me that she is not currently on any estrogen containing hormones, she has not had any recent surgeries, no prolonged immobilization, she is not having hemoptysis, and she has not had any symptoms that would be compatible with DVT. Differential diagnosis includes ACS/NH, pulmonary embolism, pneumonia, pneumothorax, electrolyte derangement, acute kidney injury, among others X line workup was initiated with an EKG as well as hematologic labs and a chest x-ray. EKG was personally turbid by me and demonstrates normal sinus rhythm at a rate of 83 bpm, normal axis, no WI prolongation, narrow QRS, no QTc prolongation. No ST elevation or depression. No overt signs of ischemia or arrhythmia. Labs were personally turbid by me and demonstrate no evidence of leukocytosis. No anemia. No electrolyte derangement or evidence of acute kidney injury. D- dimer is 0.33 which effectively rules out pulmonary embolism. Additionally, troponin is less than 0.01 and delta troponin is less than 0.01. This effectively rules out acute coronary syndrome. We did treat the patient's pain in the emergency department with 4 mg of morphine and 325 mg of aspirin. On repeat assessment the patient states that her pain has nearly completely resolved. Chest x-ray was personally interpreted by me and demonstrates no lobar consolidation or pleural effusion. Official radiology read is in agreement and states there is no acute abnormality. I have informed the patient of her results. She is ultimately reassured. We have discussed return precautions including the return of chest pain, respiratory distress, shortness of breath, fevers, cough, reduction of phlegm and any other new or worsening symptoms. At this time all questions been answered and all parties are agreeable with the decision to discharge home
[2025-03-06 22:13] LABS: Troponin I < 0.01 ng/ml (0.00-0.034)
== END 2025-03-06 22:46 | disposition home or self-care (01) ==
PROVIDERS: Emergency Provider Student in an Organized Health Care Education/Training Program; PCP Pediatrics
DX: R07.9 Chest pain, unspecified (principal); F41.1 Generalized anxiety disorder
CPT/HCPCS: 71046; 80053; 83690; 84484; 84703; 85025; 85378; 86803; 87389; 93005; 96374; 96375; 99285; J2270; J2405